=== PATIENT | male | born 1995 | race Caucasian/White ===

== ENCOUNTER 2025-05-05 16:07 | Emergency (ER) | payer OTHER, SELFPAY ==
[2025-05-05 16:09] VITALS: BP 135/77
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
[2025-05-05 22:25] VITALS: BP 118/73
[2025-05-05 23:12] VITALS: BP 110/74
== END 2025-05-05 23:13 | disposition home or self-care (01) ==
LOC: EMR 16:07
PROVIDERS: EMERGENCY PHYSICIAN Emergency Medicine
DX: S16.1XXA Strain of muscle, fascia and tendon at neck level, initial encounter (principal); R51.9 Headache, unspecified; M54.50 Low back pain, unspecified; V49.40XA Driver injured in collision with unspecified motor vehicles in traffic accident, initial encounter
CPT/HCPCS: 99284; 72125